=== PATIENT | female | born 1955 | race Two or more races ===

== ENCOUNTER 2023-05-08 00:54 | Emergency (ER) | payer MEDICARE, BC ==
[~2023-05-08] VITALS: Ht 172.7 cm; Wt 59.0 kg
[2023-05-08 01:19] LABS: BASOPHILS # (AUTO) 0.1 K/uL (0.0-0.2); BASOPHILS % (AUTO) 0.8 % (0.0-2.0); EOSINOPHILS # (AUTO) 0.1 K/uL (0.0-0.7); EOSINOPHILS % (AUTO) 1.8 % (0.0-6.0); HEMATOCRIT 41 % (33-45); HEMOGLOBIN 13.8 g/dL (11.5-14.8); LYMPHOCYTES # (AUTO) 2.2 K/uL (0.8-4.8); LYMPHOCYTES % (AUTO) 29.9 % (20.0-44.0); MEAN CORPUSCULAR HEMOGLOBIN 29 PG (26.0-33.0); MEAN CORPUSCULAR HGB CONC 34 g/dl (31.0-36.0); MEAN CORPUSCULAR VOLUME 87 fL (82-100); MONOCYTES # (AUTO) 0.6 K/uL (0.1-1.30); MONOCYTES % (AUTO) 8.6 % (2.0-12.0); NEUTROPHILS # (AUTO) 4.2 K/uL (1.8-8.9); NEUTROPHILS % (AUTO) 58.9 % (43.0-81.0); PLATELET COUNT (AUTO) 276 K/uL (150-450); RED BLOOD CELL COUNT(AUTO) 4.68 MIL/uL (4.0-5.2); RED CELL DISTRIBUTION WIDTH 12.8 % (11.5-15.0); WHITE BLOOD COUNT (AUTO) 7.2 K/uL (4.3-11.0)
[2023-05-08 01:28] LABS: CALCIUM, SERUM 9.3 mg/dL (8.5-10.1); CARBON DIOXIDE 30 mmol/L (21-32); CHLORIDE 103 mmol/L (98-107); CREATININE 0.7 mg/dL (0.6-1.3); GLUCOSE 94 mg/dL (74-106); POTASSIUM 3.9 mmol/L (3.5-5.1); SODIUM SERUM 137 mmol/L (136-145); UREA NITROGEN, BLOOD 19 mg/dL (7-18)
[2023-05-08 03:59] VITALS: BP 118/70; TEMP 98; O2SAT 99
== END 2023-05-08 04:00 | disposition home or self-care (01) ==
LOC: ER 00:56
DX: R07.2 Precordial pain (principal); J45.909 Unspecified asthma, uncomplicated; K21.9 Gastro-esophageal reflux disease without esophagitis
CPT/HCPCS: 36415; 71045-TC; 80048-TC; 84484-TC; 85025-TC

== ENCOUNTER 2024-11-24 00:40 | Emergency (ER) | payer MEDICARE, BC ==
[~2024-11-24] VITALS: Ht 172.7 cm; Wt 72.6 kg
[2024-11-24] MEDS ORDERED: ASPIRIN 81 MG TAB.CHEW ONE (01:20)
[2024-11-24] MEDS: ASPIRIN 81 MG TAB.CHEW PO ONE (01:24)
[2024-11-24 01:41] LABS: PLATELET COUNT (AUTO) 240 K/uL (150-450); RED BLOOD CELL COUNT(AUTO) 4.62 MIL/uL (4.0-5.2); RED CELL DISTRIBUTION WIDTH 13.6 % (11.5-15.0); WHITE BLOOD COUNT (AUTO) 5.0 K/uL (4.3-11.0)
[2024-11-24 01:49] LABS: CALCIUM, SERUM 8.8 mg/dL (8.5-10.1); CREATININE 0.8 mg/dL (0.6-1.3); SODIUM SERUM 140 mmol/L (136-145); UREA NITROGEN, BLOOD 19 mg/dL (7-18)
[2024-11-24 02:07] LABS: INR 0.99 (0.91-1.10)
[2024-11-24 04:08] VITALS: BP 135/78; TEMP 98; O2SAT 100
== END 2024-11-24 04:09 | disposition home or self-care (01) ==
LOC: ER 00:41
DX: R07.89 Other chest pain (principal); R05.9 Cough, unspecified; E78.00 Pure hypercholesterolemia, unspecified; J45.909 Unspecified asthma, uncomplicated; Z85.3 Personal history of malignant neoplasm of breast; Z60.2 Problems related to living alone
CPT/HCPCS: 36415; 71045-TC; 80048-TC; 84484-TC; 85025-TC; 85378-TC; 85730-TC

== ENCOUNTER 2025-02-28 12:26 | Emergency (ER) | payer MEDICARE, BC ==
[~2025-02-28] VITALS: Ht 170.2 cm; Wt 58.1 kg
[2025-02-28 12:48] LABS: PLATELET COUNT (AUTO) 229 K/uL (150-450); RED BLOOD CELL COUNT(AUTO) 4.79 MIL/uL (4.0-5.2); RED CELL DISTRIBUTION WIDTH 13.1 % (11.5-15.0); WHITE BLOOD COUNT (AUTO) 5.1 K/uL (4.3-11.0)
[2025-02-28 12:58] LABS: CALCIUM, SERUM 8.9 mg/dL (8.5-10.1); CREATININE 0.8 mg/dL (0.6-1.3); SODIUM SERUM 140.0 mmol/L (136-145); UREA NITROGEN, BLOOD 14.0 mg/dL (7-18)
[2025-02-28] MEDS ORDERED: IV NS 0.9% 250 ML IV ONE (13:40)
[2025-02-28] MEDS ORDERED: IOHEXOL-350 100 ML VIAL IV ONE (13:40)
[2025-02-28] MEDS: IV NS 0.9% 1,000 ML BAG IV ONE (14:21)
[2025-02-28 16:23] VITALS: BP 122/76; TEMP 97.8; O2SAT 100
== END 2025-02-28 16:24 | disposition home or self-care (01) ==
LOC: ER 12:30
DX: R07.89 Other chest pain (principal); Z85.3 Personal history of malignant neoplasm of breast; Z95.0 Presence of cardiac pacemaker; Z60.2 Problems related to living alone
CPT/HCPCS: 99285; 96360; 71275; 71045; 93005; 85025; 80048; 85378; 36415; 84484 ×2; J7030; J7050; Q9967